=== PATIENT | female | born 1975 | race Caucasian/White ===

== ENCOUNTER 2017-06-05 23:32 | Emergency (ER) | payer OTHER ==
[~2017-06-05] VITALS: Ht 170.2 cm; Wt 77.4 kg
[2017-06-06 00:01] LABS: HEMATOCRIT 42.5 % (36.0-46.0); MCH 30.1 PG (29.0-34.0); MCHC 33.4 G/DL (30.0-36.0); MCV 90.2 FL (83-99); MEAN PLAT.VOLUME 10.1 uM^3 (9.5-12.4); PLATELET COUNT 244 K/uL (156-360); RBC DIS.WIDTH-CV 12.9 % (11.8-14.6); RBC DIS.WIDTH-SD 42.9 % (39-53); RED BLOOD COUNT 4.71 M/uL (3.80-5.20); WHITE BLOOD COUNT 7.3 K/uL (4.1-10.2)
[2017-06-06 00:16] LABS: CHLORIDE 106 mEq/L (99-109); POTASSIUM 3.6 mEq/L (3.7-5.4); SODIUM 140 mEq/L (136-147)
[2017-06-06 00:17] LABS: GLUCOSE 114 mg/dL (70-99)
[2017-06-06 00:19] LABS: ANION GAP 6 MEQ/L (2-14)
[2017-06-06 00:22] LABS: UREA NITROGEN (BUN) 17 mg/dL (9-23)
[2017-06-06 00:25] LABS: GFR ESTIMATE (CALCULATED) > 59 mL/min/
[2017-06-06 00:26] LABS: TROP-I INTERPRETATION NEGATIVE; TROPONIN-I < 0.01 ng/mL (0.0-0.30)
[2017-06-06] MEDS ORDERED: MOTRIN800 MG PO (01:18)
[2017-06-06 01:49] LABS: TROP-I INTERPRETATION NEGATIVE; TROPONIN-I < 0.01 ng/mL (0.0-0.30)
[2017-06-06 02:07] VITALS: BP 140/77
== END 2017-06-06 02:09 | disposition home or self-care (01) ==
LOC: EME 23:32
PROVIDERS: Physician Assistant
DX: R07.89 Other chest pain (principal); M79.602 Pain in left arm
CPT/HCPCS: 71020; 80048; 84484; 85027; 93005; 99281; 99284

== ENCOUNTER 2017-06-17 08:33 | Emergency (ER) | payer OTHER ==
[~2017-06-17] VITALS: Ht 170.2 cm; Wt 76.0 kg
[~2017-06-17 08:33] MED LIST: MOTRIN800 MG PO
[2017-06-17 11:48] VITALS: BP 123/87
== END 2017-06-17 11:48 | disposition home or self-care (01) ==
LOC: EME 08:33
DX: M79.602 Pain in left arm (principal); M94.0 Chondrocostal junction syndrome [Tietze]; M62.838 Other muscle spasm
CPT/HCPCS: 93005; 99281; 99284